=== PATIENT | female | born 2000 | race American Indian/Alaskan Native ===

== ENCOUNTER 2022-02-27 03:56 | Emergency (ER) | payer SELFPAY ==
[2022-02-27 04:20] VITALS: BP 100/60
[2022-02-27] MEDS ORDERED: SODIUM CHLORIDE 0.9% 1000 ML 1,000 ML IV ONE (05:05)
[2022-02-27] MEDS ORDERED: MORPHINE 2 MG/1 ML INJ IV ONE (05:34)
[2022-02-27 05:49] LABS: Granular Casts,Urine 1 /LPF; Mucus,Urine FEW /HPF; RBC,Urine < 1.0 /HPF (0.0-6.0)
[2022-02-27 06:03] LABS: Bilirubin,Urine Negative (Negative); Blood,Urine 1+ (Negative); Color,Urine Straw (Yellow); Protein,Urine <15 mg/dL mg/dL (Negative)
[2022-02-27 06:16] LABS: Basophils % (Auto) 0.4 % (0.0-1.8); Eosinophils % (Auto) 0.3 % (0.0-4.3); Hematocrit 37.6 % (30.3-42.9); Hemoglobin 12.4 gm/dl (10.1-14.3); Lymphocytes # (Auto) 2.2 K/mm3 (1.2-5.4); Lymphocytes % (Auto) 24.6 % (13.4-35.0); Mean Corpuscular HGB Conc 33 % (30-34); Mean Corpuscular Volume 95 fl (79-97); Monocytes # (Auto) 0.4 K/mm3 (0.0-0.8); Monocytes % (Auto) 5.1 % (0.0-7.3); Platelet Count 263 K/mm3 (140-440); Red Blood Count 3.97 M/mm3 (3.65-5.03); Red Cell Distribution Width 13.7 % (13.2-15.2)
[2022-02-27] MEDS ORDERED: ONDANSETRON 4 MG/2 ML INJ IV ONE (06:23)
[2022-02-27] MEDS ORDERED: fentaNYL 100 MCG/2 ML INJ IV ONE (06:23)
--- NOTE | 2022-02-27 06:29 | Emergency Department Report ---
HPI - General Chief Complaint: Abdominal Pain Time Seen by Provider: 02/27/22 06:17 - [facility] HPI: Room 7 The patient is a 21-year-old female present with chief complaint of abdominal pain. Patient states for the past week she has had intermittent left-sided abdominal pain described as burning and stabbing in nature. Patient states the pain was initially intermittent and now become constant. Patient denies nausea vomiting diarrhea. Patient admits to one episode of dysuria 3 days ago. Patient denies history of fever, vaginal discharge or hematuria. Patient currently gives her pain a score of 5/10. LMP was mid/late January and was within normal limit ED Past Medical Hx - Past Medical History Previous Medical History?: No - Surgical History Past Surgical History?: No - Family History Family history: no significant - Social History Smoking Status: Never Smoker Substance Use Type: Marijuana - Medications Home Medications: Home Medications Medication Instructions Recorded Confirmed Last Taken Type Ibuprofen [Motrin 800 MG tab] 800 mg PO Q8HR PRN #20 tablet 02/27/22 Unknown Rx Sulfamethoxazole/Trimethoprim 1 each PO BID #6 02/27/22 Unknown Rx [Bactrim DS TAB] traMADoL [Ultram] 50 mg PO Q6HR PRN #10 tablet 02/27/22 Unknown Rx ED Review of Systems ROS: Stated complaint: ABDOMINAL PAIN Other details as noted in HPI Constitutional: denies: fever Eyes: denies: eye pain ENT: denies: throat pain Respiratory: no symptoms reported Cardiovascular: denies: chest pain Endocrine: no symptoms reported Gastrointestinal: abdominal pain. denies: nausea, vomiting, diarrhea Genitourinary: dysuria. denies: hematuria, discharge Musculoskeletal: denies: back pain Neurological: denies: headache Physical Exam - Physical Exam Vital Signs: Vital Signs 02/27/22 03:56 Temperature 98.1 F Pulse Rate 72 Respiratory 18 Rate Blood Pressure 100/60 O2 Sat by Pulse 98 Oximetry Physical Exam: GENERAL: The patient is well-developed well-nourished female lying on stretcher not appearing to be in acute distress. [] HEENT: Normocephalic. Atraumatic. Extraocular motions are intact. Patient has moist mucous membranes. NECK: Supple. Trachea midline CHEST/LUNGS: Clear to auscultation. There is no respiratory distress noted. HEART/CARDIOVASCULAR: Regular. There is no tachycardia. There is no gallop rub or murmur. ABDOMEN: Abdomen is soft, with discomfort to palpation in the midepigastric, left upper quadrant left lower quadrant. Patient has normal bowel sounds. Th ere is no abdominal distention. SKIN: There is no rash. There is no edema. There is no diaphoresis. NEURO: The patient is awake, alert, and oriented. The patient is cooperative. The patient has no focal neurologic deficits. The patient has normal speech. GCS 15 MUSCULOSKELETAL: There is no CVA tenderness. There is no evidence of acute injury. ED Course Vital Signs 02/27/22 03:56 Temperature 98.1 F Pulse Rate 72 Respiratory 18 Rate Blood Pressure 100/60 O2 Sat by Pulse 98 Oximetry ED Medical Decision Making - Lab Data Result diagrams: 02/27/22 05:45 02/27/22 05:45 - Radiology Data Radiology results: report reviewed (CT abdomen pelvis, pelvic ultrasound), image reviewed (CT abdomen pelvis, pelvic ultrasound) [facility] [address] [place] [address] Ultrasound Report Signed Patient: ENDER HUTSON MR#: [id number] : 2000 Acct:[id number] Age/Sex: 21 / F ADM Date: 02/27/22 Loc: ED Attending Dr: Ordering Physician: KIRTI MANCERA MD Date of Service: 02/27/22 Procedure(s): US pelvis duplex doppler comp Accession Number(s): [id number] cc: KIRTI MANCERA MD ULTRASOUND PELVIS INDICATION / CLINICAL INFORMATION: Left-sided pain. TECHNIQUE: Transabdominal. Duplex Color Doppler used: Yes. COMPARISON: CT abdomen and pelvis 02/27/2022 FINDINGS: UTERUS: Uterus measures 8.9 x 4.0 x 5.2 cm. No focal uterine mass. Endometrial complex is thickened measuring 17 mm. RIGHT ADNEXA: No significant ovarian cyst or mass. Normal color Doppler blood flow. Right ovary measures 3.9 x 2.8 x 2.4 cm. LEFT ADNEXA: No significant ovarian cyst or mass. Normal color Doppler blood flow. Left ovary measures 4.4 x 2.1 x 2.8 cm. FREE FLUID: Small amount of fluid is seen in the right adnexa. Although not seen sonographically, small amount of fluid was seen in the posterior cul-de-sac on CT. ADDITIONAL FINDINGS: None. IMPRESSION: 1. Small amount of free fluid is seen in the pelvis which could be physiologic and related to recent ovulation. 2. Mildly thickened endometrium. 3. No other significant finding. Signer Name: Sofia Sparks MD Signed: 02/27/2022 8:40 AM Workstation Name: [id number] Transcribed By: Dictated By: Sofia Sparks MD Electronically Authenticated By: Sofia Sparks MD Signed Date/Time: 02/27/22839 DD/ 5 TD/TT: [facility] [address] [place] [address] Cat Scan Report Signed Patient: ENDER HUTSON MR#: [id number] : 2000 Acct:[id number] Age/Sex: 21 / F ADM Date: 02/27/22 Loc: ED Attending Dr: Ordering Physician: KIRTI MANCERA MD Date of Service: 02/27/22 Procedure(s): CT abdomen pelvis w con Accession Number(s): [id number] cc: KIRTI MANCERA MD CT ABDOMEN AND PELVIS WITH CONTRAST HISTORY: Left-sided abdominal pain. COMPARISON: None. TECHNIQUE: CT images of the abdomen and pelvis were obtained following administration of intravenous contrast. All CT scans at this location are performed using CT dose reduction for ALARA by means of automated exposure control. CONTRAST: 100 ml of intravenous contrast administered. FINDINGS: Lungs/bones: Lung bases are clear Abdomen/pelvis: The liver is mildly heterogeneous and enlarged. Spleen, adrenal glands, pancreas, gallbladder and upper GI tract appear normal. Portal vein is patent. Bilateral kidneys appear normal without hydronephrosis. There is fluid within the endometrium. Free fluid is seen within the pelvis. There is suggestion right adnexal cysts with area of hypodensity on axial images. The appendix is not definitely visualized no bowel obstruction is seen. No acute bone findings IMPRESSION: 1. There is free fluid in the pelvis was suggested right adnexal cysts. Findings could represent recently ruptured adnexal cyst. Pelvic ultrasound could be performed. Fluid in the endometrium is identified. 2. The cecum is located within the deep portion of the pelvis. The appendix is not definitely seen. Appendicitis cannot be excluded based on this examination. Correlation with laboratory data, history and examination. Signer Name: Zev Wyatt MD Signed: 02/27/2022 7:48 AM Workstation Name: [email or web address] [id number] Transcribed By: LUZMA Dictated By: VIC WYATT MD Electronically Authenticated By: VIC WYATT MD Signed Date/Time: 02/27/22747 DD/ 0 TD/TT: - Differential Diagnosis UTI, ovarian cyst, diverticulitis, gastritis, Critical care attestation.: If time is entered above; I have spent that time in minutes in the direct care of this critically ill patient, excluding procedure time. ED Disposition Clinical Impression: Acute abdominal pain, UTI (urinary tract infection) Disposition: 01 HOME / SELF CARE / HOMELESS Is pt being admited?: No Does the pt Need Aspirin: No Condition: Stable Instructions: Abdominal Pain (ED), Urinary Tract Infection, Adult Additional Instructions: Return to the emergency department should you develop worsening symptoms, inability to tolerate food or liquids, high fever or any other concerns Prescriptions: Sulfamethoxazole/Trimethoprim [Bactrim DS TAB] 1 each PO BID #6 Ibuprofen [Motrin 800 MG tab] 800 mg PO Q8HR PRN #20 tablet PRN Reason: Pain, Moderate (4-6) traMADoL [Ultram] 50 mg PO Q6HR PRN #10 tablet PRN Reason: Pain Referrals: [facility] [Provider Group] - 3-5 Days Time of Disposition: 08:54
[2022-02-27 06:34] LABS: Alanine Aminotransferase 8 units/L (7-56); Albumin 4.3 g/dL (3.9-5); Blood Urea Nitrogen 8 mg/dL (7-17); Calcium 8.9 mg/dL (8.4-10.2); Hemolysis Index 5
[2022-02-27 06:53] LABS: BUN/Creatinine Ratio 11
--- NOTE | 2022-02-27 07:52 | Cat Scan Report ---
CT ABDOMEN AND PELVIS WITH CONTRAST HISTORY: Left-sided abdominal pain. COMPARISON: None. TECHNIQUE: CT images of the abdomen and pelvis were obtained following administration of intravenous contrast. All CT scans at this location are performed using CT dose reduction for ALARA by means of automated exposure control. CONTRAST: 100 ml of intravenous contrast administered. FINDINGS: Lungs/bones: Lung bases are clear Abdomen/pelvis: The liver is mildly heterogeneous and enlarged. Spleen, adrenal glands, pancreas, ga llbladder and upper GI tract appear normal. Portal vein is patent. Bilateral kidneys appear normal wi thout hydronephrosis. There is fluid within the endometrium. Free fluid is seen within the pelvis. There is suggestion righ t adnexal cysts with area of hypodensity on axial images. The appendix is not definitely visualized n o bowel obstruction is seen. No acute bone findings IMPRESSION: 1. There is free fluid in the pelvis was suggested right adnexal cysts. Findings could represent rece ntly ruptured adnexal cyst. Pelvic ultrasound could be performed. Fluid in the endometrium is identif ied. 2. The cecum is located within the deep portion of the pelvis. The appendix is not definitely seen. A ppendicitis cannot be excluded based on this examination. Correlation with laboratory data, history a nd examination. Signer Name: Zev Wyatt MD Signed: 02/27/2022 7:48 AM Workstation Name: [id number]
--- NOTE | 2022-02-27 08:45 | Ultrasound Report ---
ULTRASOUND PELVIS INDICATION / CLINICAL INFORMATION: Left-sided pain. TECHNIQUE: Transabdominal. Duplex Color Doppler used: Yes. COMPARISON: CT abdomen and pelvis 02/27/2022 FINDINGS: UTERUS: Uterus measures 8.9 x 4.0 x 5.2 cm. No focal uterine mass. Endometrial complex is thickened m easuring 17 mm. RIGHT ADNEXA: No significant ovarian cyst or mass. Normal color Doppler blood flow. Right ovary measu res 3.9 x 2.8 x 2.4 cm. LEFT ADNEXA: No significant ovarian cyst or mass. Normal color Doppler blood flow. Left ovary measure s 4.4 x 2.1 x 2.8 cm. FREE FLUID: Small amount of fluid is seen in the right adnexa. Although not seen sonographically, sma ll amount of fluid was seen in the posterior cul-de-sac on CT. ADDITIONAL FINDINGS: None. IMPRESSION: 1. Small amount of free fluid is seen in the pelvis which could be physiologic and related to recent ovulation. 2. Mildly thickened endometrium. 3. No other significant finding. Signer Name: Sofia Sparks MD Signed: 02/27/2022 8:40 AM Workstation Name: [id number]
== END 2022-02-27 09:27 | disposition home or self-care (01) ==
LOC: ED 03:56
DX: N39.0 Urinary tract infection, site not specified (principal); R10.9 Unspecified abdominal pain; F12.90 Cannabis use, unspecified, uncomplicated; Z79.899 Other long term (current) drug therapy
CPT/HCPCS: 36415; 74177; 80053; 81001; 83690; 84703; 85025; 87086; 93975; 96361; 96374; 96375; 99284; J2405; J3010; J7030; Q9967; J2270